=== PATIENT | female | born 1985 | race Caucasian/White ===

== ENCOUNTER 2023-03-23 00:16 | Inpatient (IN) ==
[2023-03-23] MEDS ORDERED: LIDOCAINE 1% LOCAL 20 ML VIAL INFIL PRN (01:13)
[2023-03-23] MEDS ORDERED: OXYTOCIN 30 UNITS/NSS 30 UNITS/500 ML BAG IV PRN ×2 (01:13→11:06)
[2023-03-23] MEDS ORDERED: PENICILLIN GK 6 MU in DEXTROSE 5% 250 ML IV STA (01:13)
--- NOTE | 2023-03-23 01:15 | History & Physical Report ---
Date of Service March 23, 2023 Assessment & Plan (1) Post-dates : (2) Group B streptococcal infection during : (3) Supervision of elderly primigravida: Plan Given already scheduled for today for induction and now quite early in the am, will plan on admission and see if she spontaneously labors. If not, would recommend pitocin or arom. Fetus reassuring and appears category one. History of Present Illness Primary Care Provider: NO PCP patient is a 37yowf with iup at 41 1/7 weeks. scheduled for postdates induction today but calling noting increased and more painful contractions. no lof/vb and Delivery Plans Obesity (BMI between 35-39 @ beginning of ) *Growth US @ 32 wks--> efw 77% *Weekly NSTs @ 36wks AMA *Weekly NST's @ 36 wks. Need for Rhogam due to RH Negative Mother -Rhogam given 12/22/22 - SP GBS Positive *Treat in Labor OB Labs: Blood Type A Negative 08/05/22 Antibody Screen NEGATIVE 12/22/22 Hemoglobin 10.5 g/dl (12.0-16.0) L 12/22/22 Hematocrit 30.9 % (37.0-47.0) L 12/22/22 Mean Corpuscular Volume 84.1 fL (80.0-100.0) 08/05/22 Platelet Count 273 K/uL (130-400) 08/05/22 Rubella IgG Antibody Immune (Immune) 08/05/22 Rapid Plasma Reagin Nonreactive (Nonreactive) 08/05/22 Hepatitis B Surface Antigen. NON-REACTIVE (NON-REACTIVE) 08/05/22 Hepatitis C Antibody (EIA) NON-REACTIVE (NON-REACTIVE) 08/05/22 HIV (1&2) Ag and Ab Confirmation NON-REACTIVE (NON-REACTIVE) 08/05/22 OB Optional Labs: Chlamydia trachomatis RNA Not Detected (NotDetected) 08/05/22 Neisseria gonorrhoeae RNA Not Detected (NotDetected) 08/05/22 Labs Reviewed: declines cfdna and horizon--smp gbs positive--akh Allergies Allergy/AdvReac Type Severity Reaction Status Date / Time No Known Allergies Allergy Verified 03/23/23 00:32 Home Medications Medication Instructions Recorded Confirmed Type prenat.vits,chrissy,lxa-bmhc-zudpj 1 tab PO DAILY 05/15/22 03/23/23 History ascorbic acid (vitamin C) 1 tab PO DAILY 07/27/22 03/23/23 History cholecalciferol (vitamin D3) 1 tab PO DAILY 07/27/22 03/23/23 History magnesium chloride 1 tab PO DAILY 07/27/22 03/23/23 History mecobalamin (vitamin B12) 1 tab PO DAILY 07/27/22 03/23/23 History omega-3 acid ethyl esters 1 tab PO DAILY 07/27/22 03/23/23 History pyridoxine (vitamin B6) 1 tab PO DAILY 07/27/22 03/23/23 History Patient History Medical History Migraines Threatened Obesity Surgical History [place] teeth extracted Family History Grandfather (Maternal) Myocardial infarction Other Dyslipidemia Hypertension Denies family history of Ovarian cancer Prostate cancer Breast cancer Colorectal cancer Social History Smoking Status: Never smoker Second Hand Exposure: No; Do You Dip or Chew Tobacco: No; Hx Alcohol Use: No Hx Substance Use: No Preferred Language: Kiswahili Communication Ability: Effective [employer] Security Required: No Beliefs That Will Affect Care: None marital status: marital status details: Bc (32) [phone] Current Living Situation: Spouse Current Living Situation Comment: house with current occupational status: employed 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 Date GA wks Lbr Lgth wt Sex Type del Anes Place Del Prov ? Comment 05/15/22 4 Aborted-Spontaneous [employer] History noncontributory Physical Exam Constitutional: WD/WN, vitals as above Gastrointestinal (Abdomen): obese, gravid, soft, nt Psychiatric: A+Ox3, euthymic affect Genitourinary: cx--3/80/-2 toco--q3-6min efm--130s with mod variability, difficult tracing, small accels. Results & Data Vital Signs (Past 12 Hours) Vital Signs Temp Pulse Resp BP O2 Del Method 03/23/23 00:39 36.8 C 18 Room Air 03/23/23 00:30 36.8 C 65 18 142/67 H Coding Level of Care Code None Diagnoses Post-dates O48.0 Group B streptococcal infection during O98.819; B95.1 Supervision of elderly primigravida O09.519
[2023-03-23] MEDS: LACTATED RINGER'S 1,000 ML IV PRN ×3 (02:01→18:04)
[2023-03-23 02:09] LABS: Hematocrit (blood only) 33.4 % (37.0-47.0); Hemoglobin 11.2 g/dl (12.0-16.0); Mean Corpuscular Hemoglobin 28.9 pg (25.0-34.0); Mean Corpuscular Hgb Conc 33.5 g/dL (32.0-36.0); Mean Corpuscular Volume 86.3 fL (80.0-100.0); Mean Platelet Volume 10.5 fL (9.4-12.4); Platelet Count 246 K/uL (130-400); RDW Coefficient of Variation 14.2 % (11.5-14.5); RDW Standard Deviation 44.5 fL (36.4-46.3); Red Blood Count 3.87 M/uL (4.20-5.40); White Blood Count 14.22 K/ul (4.8-10.8)
--- NOTE | 2023-03-23 04:24 | Labor Progress Brief Note ---
Date of Service March 23, 2023 Subjective notes contractions more painful and closer Assessment & Plan (1) Post-dates : (2) Group B streptococcal infection during : Plan Plan continued expectant management. fetus category one. Wants the most natural labor possible. did discuss the potential of arom at next check after next dose of pcn. She is agreeable. Admission and Anticipated Discharge Date Admission Date: March 23, 2023 Physical Exam Physical Exam: cx--4/90/-2 toco--irregular, 6-9min, efm--140s with mod variability, small accels , no decels Results & Data Vital Signs (Past 12 Hours) Vital Signs Temp Pulse Resp BP O2 Del Method 03/23/23 04:20 75 03/23/23 04:20 138/76 03/23/23 00:39 36.8 C 18 Room Air 03/23/23 00:30 36.8 C 65 18 142/67 H Coding Level of Care Code None Diagnoses Post-dates O48.0 Group B streptococcal infection during O98.819; B95.1
[2023-03-23] MEDS: PENICILLIN GK 3 MU in DEXTROSE 5% 100 ML IV PRN ×5 (05:45→22:20)
--- NOTE | 2023-03-23 07:35 | Labor Progress Brief Note ---
Date of Service March 23, 2023 Subjective contractions more painful, but does note irregular with spacing. notes bloody show. Assessment & Plan (1) Post-dates : (2) Group B streptococcal infection during : Plan Must have ruptured between last check and now. Making very slow change. Discussed the pros/cons of adding pitocin. Discussed may need to do so if continues to have minimal change and dysfunctional pattern. She expresses understanding. fetus category one. Admission and Anticipated Discharge Date Admission Date: March 23, 2023 Physical Exam Constitutional: WD/WN, vitals as above Psychiatric: A+Ox3, euthymic affect Genitourinary: cx--4/100/-2 cannot feel membranes toco--difficult tracing. irregular 3-6 with coupling and tripling efm--130s with mod variability, accels present, no decels Results & Data Vital Signs (Past 12 Hours) Vital Signs Temp Pulse Resp BP O2 Del Method 03/23/23 07:06 90 03/23/23 07:06 139/88 03/23/23 04:20 18 03/23/23 04:20 36.6 C 18 03/23/23 04:20 75 03/23/23 04:20 138/76 03/23/23 00:39 36.8 C 18 Room Air 03/23/23 00:30 36.8 C 65 18 142/67 H Coding Level of Care Code None Diagnoses Post-dates O48.0 Group B streptococcal infection during O98.819; B95.1
--- NOTE | 2023-03-23 09:08 | Labor Progress Brief Note ---
Date of Service March 23, 2023 Subjective pt breathing with ctx. Assessment & Plan (1) Post-dates : (2) Group B streptococcal infection during : (3) Need for rhogam due to Rh negative mother: (4) Supervision of elderly primigravida: Plan good cx change. on pcn for gbs pos. fhts categ 1. anticip . pt aware i am taking over care. Admission and Anticipated Discharge Date Admission Date: March 23, 2023 Physical Exam Constitutional: WD/WN, vitals as above Genitourinary: Manual OB Exam: + cervical dilation 6 cm, + cervical effacement 100% and + station 0 OB Exam Monitor Tracing: + external FHT monitor used, + external uterine monitor used (q2-4 per nurse, not traced well. ), + category I and + normal FHT variability Results & Data Vital Signs (Past 12 Hours) Vital Signs Temp Pulse Resp BP O2 Del Method 03/23/23 07:10 98.1 F 16 03/23/23 07:06 90 03/23/23 07:06 139/88 03/23/23 04:20 18 03/23/23 04:20 97.9 F 18 03/23/23 04:20 75 03/23/23 04:20 138/76 03/23/23 00:39 98.2 F 18 Room Air 03/23/23 00:30 98.2 F 65 18 142/67 H Coding Level of Care Code None Diagnoses Post-dates O48.0 Group B streptococcal infection during O98.819; B95.1 Need for rhogam due to Rh negative mother Z29.13 Supervision of elderly primigravida O09.519
--- NOTE | 2023-03-23 13:25 | Labor Progress Brief Note ---
Date of Service March 23, 2023 Subjective late entry due to attending multiple other deliveries, seen about 1hr ago Assessment & Plan (1) Post-dates : (2) Group B streptococcal infection during : (3) Need for rhogam due to Rh negative mother: (4) Supervision of elderly primigravida: Plan rec pitocin augmentation of labor. pt agrees. fhts categ1. watch bp. Admission and Anticipated Discharge Date Admission Date: March 23, 2023 Physical Exam Constitutional: WD/WN, vitals as above (newest bp elevated, will need to recheck) Genitourinary: Manual OB Exam: + cervical dilation 6 cm, + cervical effacement 90% and + station 0 OB Exam Monitor Tracing: + external FHT monitor used, + external uterine monitor used (q8min), + category I and + normal FHT variability Results & Data Vital Signs (Past 12 Hours) Vital Signs Temp Pulse Resp BP 03/23/23 13:05 93 H 03/23/23 13:05 160/76 H 03/23/23 12:52 64 03/23/23 12:52 161/71 H 03/23/23 12:37 71 03/23/23 12:37 158/83 H 03/23/23 12:20 71 03/23/23 12:20 145/72 H 03/23/23 12:06 75 03/23/23 12:06 144/67 H 03/23/23 11:51 76 03/23/23 11:51 169/74 H 03/23/23 11:00 98.1 F 03/23/23 10:50 71 03/23/23 10:50 138/73 03/23/23 09:15 71 03/23/23 09:15 139/68 03/23/23 09:10 98.8 F 03/23/23 09:10 75 03/23/23 09:10 168/90 H 03/23/23 07:10 98.1 F 16 03/23/23 07:06 90 03/23/23 07:06 139/88 03/23/23 04:20 18 03/23/23 04:20 97.9 F 18 03/23/23 04:20 75 03/23/23 04:20 138/76 Coding Level of Care Code None Diagnoses Post-dates O48.0 Group B streptococcal infection during O98.819; B95.1 Need for rhogam due to Rh negative mother Z29.13 Supervision of elderly primigravida O09.519
[2023-03-23] MEDS ORDERED: LABETALOL HCL IV 5 MG/ML 20ML IV STA (14:07)
--- NOTE | 2023-03-23 14:07 | Labor Progress Brief Note ---
Date of Service March 23, 2023 Subjective feeling pain with ctx. no cespedes or visual change. Assessment & Plan (1) Post-dates : (2) Group B streptococcal infection during : (3) Need for rhogam due to Rh negative mother: (4) Supervision of elderly primigravida: Plan good cx change. c/w pit. will need to trt elevated bp Admission and Anticipated Discharge Date Admission Date: March 23, 2023 Physical Exam Constitutional: WD/WN, vitals as above Genitourinary: Manual OB Exam: + cervical dilation 8 cm, + cervical effacement 100% and + station + 1 OB Exam Monitor Tracing: + external FHT monitor used, + external uterine monitor used (q3, on pit), + category I and + normal FHT variability Results & Data Vital Signs (Past 12 Hours) Vital Signs Temp Pulse Resp BP 03/23/23 13:55 69 03/23/23 13:55 172/77 H 03/23/23 13:51 75 03/23/23 13:51 167/87 H 03/23/23 13:42 71 03/23/23 13:42 169/88 H 03/23/23 13:36 70 03/23/23 13:36 163/89 H 03/23/23 13:30 20 03/23/23 13:30 98.1 F 20 03/23/23 13:23 69 03/23/23 13:23 187/87 H 03/23/23 13:05 93 H 03/23/23 13:05 160/76 H 03/23/23 12:52 64 03/23/23 12:52 161/71 H 03/23/23 12:37 71 03/23/23 12:37 158/83 H 03/23/23 12:20 71 03/23/23 12:20 145/72 H 03/23/23 12:06 75 03/23/23 12:06 144/67 H 03/23/23 11:51 76 03/23/23 11:51 169/74 H 03/23/23 11:00 98.1 F 03/23/23 10:50 71 03/23/23 10:50 138/73 03/23/23 09:15 71 03/23/23 09:15 139/68 03/23/23 09:10 98.8 F 03/23/23 09:10 75 03/23/23 09:10 168/90 H 03/23/23 07:10 98.1 F 16 03/23/23 07:06 90 03/23/23 07:06 139/88 03/23/23 04:20 18 03/23/23 04:20 97.9 F 18 03/23/23 04:20 75 03/23/23 04:20 138/76 Coding Level of Care Code None Diagnoses Post-dates O48.0 Group B streptococcal infection during O98.819; B95.1 Need for rhogam due to Rh negative mother Z29.13 Supervision of elderly primigravida O09.519
[2023-03-23] MEDS ORDERED: SODIUM CHLORIDE 0.9% PF INJ 10 ML VIAL ONE (17:53)
[2023-03-23] MEDS ORDERED: LIDOCAINE 2%/EPINEPHRINE 1:200,000 20 ML PF ONE (17:53)
[2023-03-23] MEDS ORDERED: BUPIVACAINE 0.25% PF 30 ML VIAL ONE (17:53)
[2023-03-23] MEDS ORDERED: fentaNYL citrate PF 100 MCG/2 ML VIAL ONE (17:53)
[2023-03-23] MEDS ORDERED: fentANYL 2 MCG/ML BUPIVacaine 0.125%-NSS 100ML BAG ONE (17:53)
[2023-03-23] MEDS ORDERED: ePHEDrine sulfate 50 MG/ML AMP ONE (17:53)
--- NOTE | 2023-03-23 17:54 | Anesthesiology Consultation ---
Date of Service March 23, 2023 Assessment & Plan (1) Encounter for pre-operative examination: Chart Review Chart Review: Acceptable Risk for Labor Epidural History Height/Weight Height: 5 ft 2 in Weight: 115.212 kg Allergies Allergy/AdvReac Type Severity Reaction Status Date / Time No Known Allergies Allergy Verified 03/23/23 00:32 Medications Home Medications Medication Instructions Recorded Confirmed Last Taken prenat.vits,chrissy,uwd-vghs-jajtf 1 tab PO DAILY 05/15/22 03/23/23 03/22/23 ascorbic acid (vitamin C) 1 tab PO DAILY 07/27/22 03/23/23 03/22/23 cholecalciferol (vitamin D3) 1 tab PO DAILY 07/27/22 03/23/23 03/22/23 magnesium chloride 1 tab PO DAILY 07/27/22 03/23/23 03/22/23 mecobalamin (vitamin B12) 1 tab PO DAILY 07/27/22 03/23/23 03/22/23 omega-3 acid ethyl esters 1 tab PO DAILY 07/27/22 03/23/23 03/22/23 pyridoxine (vitamin B6) 1 tab PO DAILY 07/27/22 03/23/23 03/22/23 Active Medications Generic Name Dose Route Start Last Admin Trade Name Freq PRN Reason Stop Dose Admin Lactated Ringer's 1,000 mls @ 125 mls/hr 03/23/23 01:13 03/23/23 16:00 Lr IV 03/25/23 01:12 125 mls/hr .Q8H PRN Infusion L&D Protocol Protocol Penicillin G Potassium 3 mu/ 106 mls @ 100 mls/hr 03/23/23 04:13 03/23/23 13:38 Dextrose IV 04/02/23 04:12 106 mls/hr Q4H PRN Administration GBS(+) Until Delivery Oxytocin 30 units in 500 mls @ 7 mls/hr 03/23/23 11:06 03/23/23 16:00 Pitocin 30 Units/Nss IV 03/25/23 11:05 0.42 units/hr .Q24H PRN 7 mls/hr Labor Induction/Augmentation Titration Protocol 0.42 UNITS/HR Past Medical History Medical History Migraines Threatened Obesity Past Family History Family History Grandfather (Maternal) Myocardial infarction Other Dyslipidemia Hypertension Denies family history of Ovarian cancer Prostate cancer Breast cancer Colorectal cancer Past Surgical History Surgical History [place] teeth extracted Social History Smoking Status: Never smoker Do You Dip or Chew Tobacco: No Hx Alcohol Use: No Hx Substance Use: No Physical Exam Vital Signs Last Vital Signs Temp 36.7 C 03/23/23 15:00 Pulse 71 03/23/23 17:50 Resp 20 03/23/23 13:30 BP 144/76 H 03/23/23 17:04 Pulse Ox 99 03/23/23 17:50 O2 Del Method Room Air 03/23/23 00:39 Testing Laboratory Results 03/23/23 01:56 Blood Type A Negative 03/23/23 01:56 Antibody Screen NEGATIVE 03/23/23 01:56
[2023-03-23] MEDS ORDERED: NALOXONE HCL 0.4 MG/1 ML VIAL/CARP IV PRN (18:21)
[2023-03-23] MEDS ORDERED: SODIUM CHLORIDE 0.9% PF INJ 10 ML VIAL EPI PRN (18:21)
[2023-03-23] MEDS ORDERED: ONDANSETRON INJ 2 MG/ML 2 ML VIAL IV PRN (18:21)
[2023-03-23] MEDS ORDERED: SODIUM CHLORIDE 0.9% PF INJ 10 ML VIAL EPI STA (18:21)
[2023-03-23] MEDS ORDERED: BUPIVACAINE 0.25% PF 30 ML VIAL EPI PRN (18:21)
[2023-03-23] MEDS ORDERED: LIDOCAINE 2% MPF LOCAL 5 ML VIAL EPI PRN (18:21)
[2023-03-23] MEDS ORDERED: fentANYL 2 MCG/ML BUPIVacaine 0.125%-NSS 100ML BAG EPI PRN (18:21)
[2023-03-23] MEDS ORDERED: fentaNYL citrate PF 100 MCG/2 ML VIAL EPI STA (18:21)
[2023-03-23] MEDS ORDERED: NALOXONE HCL 1 MG in SODIUM CHLORIDE 0.9% 1,000 ML IV PRN (18:21)
[2023-03-23] MEDS ORDERED: ePHEDrine sulfate 50 MG/ML AMP IV PRN (18:21)
[2023-03-23] MEDS ORDERED: ROPIVACAINE 0.5% PF 5 MG/ML 20 ML VIAL EPI PRN (18:21)
[2023-03-23] MEDS ORDERED: BUPIVACAINE 0.25% PF 30 ML VIAL EPI STA (18:21)
[2023-03-23] MEDS ORDERED: LIDOCAINE 2%/EPINEPHRINE 1:200,000 20 ML PF EPI STA (18:21)
[2023-03-23] MEDS ORDERED: fentaNYL citrate PF 100 MCG/2 ML VIAL EPI PRN (18:21)
--- NOTE | 2023-03-23 22:26 | Labor Progress Brief Note ---
Date of Service March 23, 2023 Subjective pt feeling comfortable Assessment & Plan (1) Post-dates : (2) Group B streptococcal infection during : (3) Need for rhogam due to Rh negative mother: (4) Supervision of elderly primigravida: Plan good cx change compared to my prior exams but given ctx pattern needs more power/pitocin. fhts categ 1. enc change of positions. Admission and Anticipated Discharge Date Admission Date: March 23, 2023 Physical Exam Constitutional: WD/WN, vitals as above Genitourinary: Manual OB Exam: + cervical dilation (rim), + cervical effacement 100% and + station + 1 OB Exam Monitor Tracing: + external FHT monitor used, + external uterine monitor used (q2-4, pit at 15), + category I and + normal FHT variability Results & Data Vital Signs (Past 12 Hours) Vital Signs Temp Pulse Resp BP Pulse Ox 03/23/23 22:20 100 03/23/23 22:20 68 03/23/23 22:16 65 03/23/23 22:16 111/54 L 03/23/23 22:15 99 03/23/23 22:15 64 03/23/23 22:10 100 03/23/23 22:10 83 03/23/23 22:05 100 03/23/23 22:05 88 03/23/23 22:00 100 03/23/23 22:00 87 03/23/23 21:55 99 03/23/23 21:55 73 03/23/23 21:50 99 03/23/23 21:50 68 03/23/23 21:46 71 03/23/23 21:46 131/63 03/23/23 21:45 100 03/23/23 21:45 75 03/23/23 21:40 100 03/23/23 21:40 68 03/23/23 21:35 100 03/23/23 21:35 67 03/23/23 21:31 66 03/23/23 21:31 125/62 03/23/23 21:30 18 03/23/23 21:30 18 03/23/23 21:30 100 03/23/23 21:30 64 03/23/23 21:25 100 03/23/23 21:25 66 03/23/23 21:20 100 03/23/23 21:20 76 03/23/23 21:15 100 03/23/23 21:15 72 03/23/23 21:15 124/64 03/23/23 21:10 100 03/23/23 21:10 69 03/23/23 21:05 100 03/23/23 21:05 72 03/23/23 21:00 18 03/23/23 21:00 98.6 F 18 03/23/23 21:00 100 03/23/23 21:00 73 03/23/23 21:00 75 03/23/23 21:00 127/66 03/23/23 20:55 100 03/23/23 20:55 77 03/23/23 20:50 100 03/23/23 20:50 78 03/23/23 20:46 82 03/23/23 20:46 134/81 03/23/23 20:45 100 03/23/23 20:45 89 03/23/23 20:40 100 03/23/23 20:40 73 03/23/23 20:35 100 03/23/23 20:35 76 03/23/23 20:32 80 03/23/23 20:32 142/67 H 03/23/23 20:30 18 03/23/23 20:30 18 03/23/23 20:30 100 03/23/23 20:30 77 03/23/23 20:25 99 03/23/23 20:25 69 03/23/23 20:20 100 03/23/23 20:20 74 03/23/23 20:15 99 03/23/23 20:15 68 03/23/23 20:15 127/65 03/23/23 20:10 99 03/23/23 20:10 69 03/23/23 20:05 100 03/23/23 20:05 65 03/23/23 20:01 81 03/23/23 20:01 128/69 03/23/23 20:00 18 03/23/23 20:00 98.4 F 18 03/23/23 20:00 100 03/23/23 20:00 74 03/23/23 19:55 100 03/23/23 19:55 79 03/23/23 19:50 99 03/23/23 19:50 65 03/23/23 19:45 99 03/23/23 19:45 65 03/23/23 19:45 128/62 03/23/23 19:40 100 03/23/23 19:40 65 03/23/23 19:35 100 03/23/23 19:35 68 03/23/23 19:31 72 03/23/23 19:31 132/67 03/23/23 19:30 100 03/23/23 19:30 72 03/23/23 19:25 100 03/23/23 19:25 78 03/23/23 19:20 98 03/23/23 19:20 66 03/23/23 19:16 72 03/23/23 19:16 126/58 L 03/23/23 19:15 99 03/23/23 19:15 71 03/23/23 19:10 100 03/23/23 19:10 79 03/23/23 19:05 100 03/23/23 19:05 89 03/23/23 19:01 67 03/23/23 19:01 118/56 L 03/23/23 19:00 16 03/23/23 19:00 16 03/23/23 19:00 99 03/23/23 19:00 67 03/23/23 18:55 100 03/23/23 18:55 66 03/23/23 18:50 99 03/23/23 18:50 68 03/23/23 18:45 100 03/23/23 18:45 70 03/23/23 18:44 66 03/23/23 18:44 120/60 03/23/23 18:42 71 03/23/23 18:42 121/59 L 03/23/23 18:40 100 03/23/23 18:40 71 03/23/23 18:40 67 03/23/23 18:40 120/57 L 03/23/23 18:38 68 03/23/23 18:38 120/57 L 03/23/23 18:36 66 03/23/23 18:36 122/58 L 03/23/23 18:35 99 03/23/23 18:35 69 03/23/23 18:34 65 03/23/23 18:34 122/58 L 03/23/23 18:32 68 03/23/23 18:32 123/57 L 03/23/23 18:30 16 03/23/23 18:30 16 03/23/23 18:30 100 03/23/23 18:30 71 03/23/23 18:30 122/62 03/23/23 18:28 80 03/23/23 18:28 121/66 03/23/23 18:26 83 03/23/23 18:26 123/62 03/23/23 18:25 100 03/23/23 18:25 85 03/23/23 18:24 83 03/23/23 18:24 128/63 03/23/23 18:22 16 03/23/23 18:22 16 03/23/23 18:22 86 03/23/23 18:22 136/67 03/23/23 18:20 99 03/23/23 18:20 79 03/23/23 18:20 134/69 03/23/23 18:18 16 03/23/23 18:18 16 03/23/23 18:18 82 03/23/23 18:18 139/65 03/23/23 18:16 78 03/23/23 18:16 148/70 H 03/23/23 18:15 99 03/23/23 18:15 83 03/23/23 18:14 85 03/23/23 18:14 174/91 H 03/23/23 18:10 94 03/23/23 18:10 74 03/23/23 18:05 100 03/23/23 18:05 84 03/23/23 18:00 100 03/23/23 18:00 72 03/23/23 17:55 99 03/23/23 17:55 69 03/23/23 17:50 99 03/23/23 17:50 71 03/23/23 17:06 98.8 F 03/23/23 17:04 65 03/23/23 17:04 144/76 H 03/23/23 15:37 66 03/23/23 15:37 150/74 H 03/23/23 15:07 74 03/23/23 15:07 157/77 H 03/23/23 15:00 98.1 F 03/23/23 14:59 69 03/23/23 14:59 154/77 H 03/23/23 14:51 69 03/23/23 14:51 146/73 H 03/23/23 14:39 63 03/23/23 14:39 149/80 H 03/23/23 14:36 64 03/23/23 14:36 143/78 H 03/23/23 14:30 67 03/23/23 14:30 166/74 H 03/23/23 14:16 69 172/77 H 03/23/23 13:55 69 03/23/23 13:55 172/77 H 03/23/23 13:51 75 03/23/23 13:51 167/87 H 03/23/23 13:42 71 03/23/23 13:42 169/88 H 03/23/23 13:36 70 03/23/23 13:36 163/89 H 03/23/23 13:30 20 03/23/23 13:30 98.1 F 20 03/23/23 13:23 69 03/23/23 13:23 187/87 H 03/23/23 13:05 93 H 03/23/23 13:05 160/76 H 03/23/23 12:52 64 03/23/23 12:52 161/71 H 03/23/23 12:37 71 03/23/23 12:37 158/83 H 03/23/23 12:20 71 03/23/23 12:20 145/72 H 03/23/23 12:06 75 03/23/23 12:06 144/67 H 03/23/23 11:51 76 03/23/23 11:51 169/74 H 03/23/23 11:00 98.1 F 03/23/23 10:50 71 03/23/23 10:50 138/73 Coding Level of Care Code None Diagnoses Post-dates O48.0 Group B streptococcal infection during O98.819; B95.1 Need for rhogam due to Rh negative mother Z29.13 Supervision of elderly primigravida O09.519
[2023-03-24] MEDS: LACTATED RINGER'S 1,000 ML IV PRN (00:16)
--- NOTE | 2023-03-24 02:10 | Labor Progress Brief Note ---
Date of Service March 24, 2023 Subjective pt pushing. Assessment & Plan (1) Post-dates : (2) Group B streptococcal infection during : (3) Need for rhogam due to Rh negative mother: (4) Supervision of elderly primigravida: Plan cont 2nd stage. fhts categ 2. c/w pit Admission and Anticipated Discharge Date Admission Date: March 23, 2023 Physical Exam Constitutional: WD/WN, vitals as above Genitourinary: Manual OB Exam: + cervical dilation 10 cm, + cervical effacement 100% and + station + 2 OB Exam Monitor Tracing: + external FHT monitor used, + external uterine monitor used (q2-3), + category II, + normal FHT variability and + variable decelerations Results & Data Vital Signs (Past 12 Hours) Vital Signs Temp Pulse Resp BP Pulse Ox 03/24/23 02:05 77 132/62 03/24/23 01:50 101 H 135/64 03/24/23 01:30 18 03/24/23 01:30 18 03/24/23 01:20 86 100 03/24/23 01:15 88 100 03/24/23 01:10 77 100 03/24/23 01:05 74 100 03/24/23 01:00 98.6 F 72 18 100 03/24/23 00:55 78 100 03/24/23 00:50 79 100 03/24/23 00:45 75 100 03/24/23 00:40 74 100 03/24/23 00:35 73 100 03/24/23 00:32 89 126/80 03/24/23 00:30 76 18 100 03/24/23 00:25 88 100 03/24/23 00:20 87 100 03/24/23 00:16 77 123/77 03/24/23 00:15 84 100 03/24/23 00:10 92 H 100 03/24/23 00:05 80 100 03/24/23 00:02 70 137/71 03/24/23 00:00 77 18 100 03/23/23 23:55 100 03/23/23 23:55 73 03/23/23 23:50 99 03/23/23 23:50 74 03/23/23 23:45 100 03/23/23 23:45 83 03/23/23 23:40 100 03/23/23 23:40 87 03/23/23 23:35 100 03/23/23 23:35 97 H 03/23/23 23:30 99 03/23/23 23:30 83 03/23/23 23:25 98 03/23/23 23:25 78 03/23/23 23:20 99 03/23/23 23:20 68 03/23/23 23:15 99 03/23/23 23:15 83 03/23/23 23:10 98 03/23/23 23:10 67 03/23/23 23:05 100 03/23/23 23:05 85 03/23/23 23:00 18 03/23/23 23:00 99.0 F 18 03/23/23 23:00 98 03/23/23 23:00 83 03/23/23 22:55 98 03/23/23 22:55 65 03/23/23 22:50 99 03/23/23 22:50 65 03/23/23 22:45 98 03/23/23 22:45 67 03/23/23 22:40 99 03/23/23 22:40 67 03/23/23 22:35 100 03/23/23 22:35 65 03/23/23 22:30 18 03/23/23 22:30 18 03/23/23 22:30 18 03/23/23 22:30 18 03/23/23 22:30 98 03/23/23 22:30 63 03/23/23 22:30 61 03/23/23 22:30 115/56 L 03/23/23 22:25 98 03/23/23 22:25 68 03/23/23 22:20 100 03/23/23 22:20 68 03/23/23 22:16 65 03/23/23 22:16 111/54 L 03/23/23 22:15 99 03/23/23 22:15 64 03/23/23 22:10 100 03/23/23 22:10 83 03/23/23 22:05 100 03/23/23 22:05 88 03/23/23 22:00 100 03/23/23 22:00 87 03/23/23 21:55 99 03/23/23 21:55 73 03/23/23 21:50 99 03/23/23 21:50 68 01/09/24 21:46 71 03/23/23 21:46 131/63 03/23/23 21:45 100 03/23/23 21:45 75 03/23/23 21:40 100 03/23/23 21:40 68 03/23/23 21:35 100 03/23/23 21:35 67 03/23/23 21:31 66 03/23/23 21:31 125/62 03/23/23 21:30 18 03/23/23 21:30 18 03/23/23 21:30 100 03/23/23 21:30 64 03/23/23 21:25 100 03/23/23 21:25 66 03/23/23 21:20 100 03/23/23 21:20 76 03/23/23 21:15 100 03/23/23 21:15 72 03/23/23 21:15 124/64 03/23/23 21:10 100 03/23/23 21:10 69 03/23/23 21:05 100 03/23/23 21:05 72 03/23/23 21:00 18 03/23/23 21:00 98.6 F 18 03/23/23 21:00 100 03/23/23 21:00 73 03/23/23 21:00 75 03/23/23 21:00 127/66 03/23/23 20:55 100 03/23/23 20:55 77 03/23/23 20:50 100 03/23/23 20:50 78 03/23/23 20:46 82 03/23/23 20:46 134/81 03/23/23 20:45 100 03/23/23 20:45 89 03/23/23 20:40 100 03/23/23 20:40 73 03/23/23 20:35 100 03/23/23 20:35 76 03/23/23 20:32 80 03/23/23 20:32 142/67 H 03/23/23 20:30 18 03/23/23 20:30 18 03/23/23 20:30 100 03/23/23 20:30 77 03/23/23 20:25 99 03/23/23 20:25 69 03/23/23 20:20 100 03/23/23 20:20 74 03/23/23 20:15 99 03/23/23 20:15 68 03/23/23 20:15 127/65 03/23/23 20:10 99 03/23/23 20:10 69 03/23/23 20:05 100 03/23/23 20:05 65 03/23/23 20:01 81 03/23/23 20:01 128/69 03/23/23 20:00 18 03/23/23 20:00 98.4 F 18 03/23/23 20:00 100 03/23/23 20:00 74 03/23/23 19:55 100 03/23/23 19:55 79 03/23/23 19:50 99 03/23/23 19:50 65 03/23/23 19:45 99 03/23/23 19:45 65 03/23/23 19:45 128/62 03/23/23 19:40 100 03/23/23 19:40 65 03/23/23 19:35 100 03/23/23 19:35 68 03/23/23 19:31 72 03/23/23 19:31 132/67 03/23/23 19:30 100 03/23/23 19:30 72 03/23/23 19:25 100 03/23/23 19:25 78 03/23/23 19:20 98 03/23/23 19:20 66 03/23/23 19:16 72 03/23/23 19:16 126/58 L 03/23/23 19:15 99 03/23/23 19:15 71 03/23/23 19:10 100 03/23/23 19:10 79 03/23/23 19:05 100 03/23/23 19:05 89 03/23/23 19:01 67 03/23/23 19:01 118/56 L 03/23/23 19:00 16 03/23/23 19:00 16 03/23/23 19:00 99 03/23/23 19:00 67 03/23/23 18:55 100 03/23/23 18:55 66 03/23/23 18:50 99 03/23/23 18:50 68 03/23/23 18:45 100 03/23/23 18:45 70 03/23/23 18:44 66 03/23/23 18:44 120/60 01/09/24 18:42 71 03/23/23 18:42 121/59 L 03/23/23 18:40 100 03/23/23 18:40 71 03/23/23 18:40 67 03/23/23 18:40 120/57 L 03/23/23 18:38 68 03/23/23 18:38 120/57 L 03/23/23 18:36 66 03/23/23 18:36 122/58 L 03/23/23 18:35 99 03/23/23 18:35 69 03/23/23 18:34 65 03/23/23 18:34 122/58 L 03/23/23 18:32 68 03/23/23 18:32 123/57 L 03/23/23 18:30 16 03/23/23 18:30 16 03/23/23 18:30 100 03/23/23 18:30 71 03/23/23 18:30 122/62 03/23/23 18:28 80 03/23/23 18:28 121/66 03/23/23 18:26 83 03/23/23 18:26 123/62 03/23/23 18:25 100 03/23/23 18:25 85 03/23/23 18:24 83 03/23/23 18:24 128/63 03/23/23 18:22 16 03/23/23 18:22 16 03/23/23 18:22 86 03/23/23 18:22 136/67 03/23/23 18:20 99 03/23/23 18:20 79 03/23/23 18:20 134/69 03/23/23 18:18 16 03/23/23 18:18 16 03/23/23 18:18 82 03/23/23 18:18 139/65 03/23/23 18:16 78 03/23/23 18:16 148/70 H 03/23/23 18:15 99 03/23/23 18:15 83 03/23/23 18:14 85 03/23/23 18:14 174/91 H 03/23/23 18:10 94 03/23/23 18:10 74 03/23/23 18:05 100 03/23/23 18:05 84 03/23/23 18:00 100 03/23/23 18:00 72 03/23/23 17:55 99 03/23/23 17:55 69 03/23/23 17:50 99 03/23/23 17:50 71 03/23/23 17:06 98.8 F 03/23/23 17:04 65 03/23/23 17:04 144/76 H 03/23/23 15:37 66 03/23/23 15:37 150/74 H 03/23/23 15:07 74 03/23/23 15:07 157/77 H 03/23/23 15:00 98.1 F 03/23/23 14:59 69 03/23/23 14:59 154/77 H 03/23/23 14:51 69 03/23/23 14:51 146/73 H 03/23/23 14:39 63 03/23/23 14:39 149/80 H 03/23/23 14:36 64 03/23/23 14:36 143/78 H 03/23/23 14:30 67 03/23/23 14:30 166/74 H 03/23/23 14:16 69 172/77 H Coding Level of Care Code None Diagnoses Post-dates O48.0 Group B streptococcal infection during O98.819; B95.1 Need for rhogam due to Rh negative mother Z29.13 Supervision of elderly primigravida O09.519
--- NOTE | 2023-03-24 03:07 | Anesthesia Procedure Note ---
Date of Service March 24, 2023 Anesthesia Post Epidural Note Vital Signs Vital Signs: Temp Pulse Resp BP Pulse Ox O2 Del Method 37.0 C 114 H 18 127/67 100 Room Air 03/24/23 01:00 03/24/23 02:50 03/24/23 02:00 03/24/23 02:50 03/24/23 01:20 03/23/23 00:39 Pain Intensity Abdomen: Pain Intensity: 6 Notes Mental Status: alert / awake / arousable and participated in evaluation Nausea / Vomiting: adequately controlled Pain: adequately controlled Airway Patency, RR, SpO2: stable & adequate BP & HR: stable & adequate Hydration State: stable & adequate Neuraxial Anesthesia: was administered and sensory block is resolving Anesthetic Complications: no major complications apparent Epidural: Removed without complications and With tip intact
--- NOTE | 2023-03-24 03:14 | Delivery Summary ---
Vaginal Delivery Summary Date of Service March 24, 2023 Vaginal Delivery Summary and 2nd Degree LAC The patient dilated to complete and pushed to deliver a viable female Apgars 7 and 9 via over 2nd degree perineal laceration. Mouth and nose bulb suctioned at perineum. Shoulders and body delivered with ease. Terminal meconium noted. was vigorous and crying at . Cord clamped at 30 seconds of life and infant to maternal abdomen where the cord was then doubly clamped and cut. Placenta delivered spontaneously and intact, three-vessel cord. Hemostasis achieved with dilute pitocin and uterine massage and drainage of the bladder for approximately 200 cc under sterile conditions. Laceration repaired in layers with 3-0 vicryl, tissue easily was tearing. Cervix and sulci intact. EBL 600 cc, at least 200cc while pushing likely from vaginal laceration . Mother and baby stable in recovery. [facility] [place] Charge Delivery Type Details: and 2nd Degree LAC
[2023-03-24] MEDS ORDERED: bisacodyL 10 MG SUPP PR PRN (03:50)
[2023-03-24] MEDS ORDERED: BENZOCAINE 20% SPRY 85 APPLN/85 GM CAN EXT PRN (03:50)
[2023-03-24] MEDS ORDERED: OXYTOCIN 30 UNITS/NSS 30 UNITS/500 ML BAG IV PRN (03:50)
[2023-03-24] MEDS ORDERED: DIPHTHERIA/TETANUS/PERTUSSIS Vaccine (Tdap, Age 7+yrs) 0.5mL SYR/VL IM ONE (03:50)
[2023-03-24] MEDS ORDERED: ACETAMINOPHEN 325 MG TAB PO PRN (03:50)
[2023-03-24] MEDS ORDERED: oxyCODONE/ACETAMINOPHEN 5mg/325mg TAB PO PRN (03:50)
[2023-03-24] MEDS ORDERED: HYDROCORTISONE ACETATE 25 MG SUPP PR PRN (03:50)
[2023-03-24] MEDS ORDERED: OXYTOCIN 20 UNITS/LR 1,002 ML IV SCH (03:50)
[2023-03-24] MEDS: IBUPROFEN 600 MG TAB PO PRN ×4 (04:26→20:37)
[2023-03-24] MEDS ORDERED: CALCIUM CARBONATE 500 MG CHEWABLE TAB PO PRN (04:29)
[2023-03-24] MEDS: DOCUSATE SODIUM 100 MG CAP PO SCH ×2 (10:27→20:38)
[2023-03-24] MEDS: PRENATAL VITAMIN 1 TAB PO SCH (10:28)
[2023-03-25] MEDS: IBUPROFEN 600 MG TAB PO PRN ×2 (02:11→08:37)
[2023-03-25 06:21] LABS: Hematocrit (blood only) 22.2 % (37.0-47.0); Hemoglobin 7.4 g/dl (12.0-16.0)
--- NOTE | 2023-03-25 07:38 | Obstetrical Progress Note ---
Date of Service <Sheree Larios MD - Last Filed: 03/25/23 07:38> March 25, 2023 Assessment & Plan <Sheree Larios MD - Last Filed: 03/25/23 07:38> (1) Encounter for care after hospital delivery: Patient with the above mentioned history and findings was evaluated at bedside and found awake, alert, oriented in all spheres, afebrile, and in no acute distress. Vital signs showed no fever and blood pressures remained stable. Her blood type is A negative. Baby's blood type AB positive. Pending Rhogam. Most recent hemoglobin is 7.4 g/dL. Patient reporting lightheadedness. Transfusion was discussed given low value and present symptoms, but patient preferred use iron tablets as management. She is GBS positive treated intrapartum and rubella immune. Overall, patient is doing well clinically and meeting the desired milestones. Since she is clinically and hemodynamically stable, will discharge today. she was counseled to make an appointment with her OB in 6 weeks for her routine pp evaluation. Discharge instructions discussed. All questions answered. <Nazanin Garcia MD - Last Filed: 03/25/23 08:05> (1) Encounter for care after hospital delivery: Subjective <Sheree Larios MD - Last Filed: 03/25/23 07:38> Libby is a 37y/o female who is now PPD # 1 following at 41 2/7 weeks. Reports feeling well overall this morning. Refers mild abdominal cramping & 3/10 pain well managed on analgesics. Voiding spontaneously. Has passed flatus but no bowel movements yet. Tolerating meals overnight and able to ambulate some . Some persistent lochia with some improvement this morning. . Constitutional: no fever, no chills or no sweats Denies shortness of breath or difficulty breathing Cardiovascular: no chest pain or no palpitations Breast: no breast pain Genitourinary (female): no dysuria Neurologic: no headache(s) Denies changes in vision Physical Exam <Sheree Larios MD - Last Filed: 03/25/23 07:38> General: Alert. Oriented to person, time, and place. Afebrile. No acute distress. Eyes: pupils equal and reactive to light bilaterally, extraocular movements intact. Cardiac: Regular rate and rhythm, no murmurs/rubs/gallops. Respiratory: Clear to auscultation bilaterally a/p, no wheezes/rales/rhonchi. No increased work of breathing. Symmetrical chest rise. No respiratory distress. Abdomen: Soft, nontender, nondistended. Bowel sounds present. Uterus: Uterine fundus firm, mildly tender, and palpable below umbilicus. Lower Extremities: No deep calf pain. Kaushik's negative bilaterally. Psych: Euthymic affect. Mood and affect congruence. Regular speech rate and content. Results & Data <Sheree Larios MD - Last Filed: 03/25/23 07:38> Vital Signs (Past 12 Hours) Vital Signs Temp Pulse Resp BP Pulse Ox O2 Del Method 03/25/23 00:40 36.7 C 75 20 132/89 97 Room Air 03/24/23 20:45 36.6 C 84 18 108/76 98 Room Air Supervising Physician <Nazanin Garcia MD - Last Filed: 03/25/23 08:05> Co-Signing Physician Notes Resident Physician Supervision Note: I interviewed and examined the patient. Discussed with Dr. Larios and agree with findings and plan as documented in the note. Any exceptions or clarifications are listed here: 37 yo PP1 s/p , doing well. Occ lightheadedness with ambulation but not consistent. VSS, exam benign and wnl. H/H 7.4 today. Discussed iron vs blood transfusion, pt overall feels well and thinks fatigue may be adding to the lightheadedness. Would prefer to stick with iron pills for now. Pt does desire dc home, ok to do so. Precautions reviewed Documented By: Nazanin Garcia MD
[2023-03-25] MEDS: DOCUSATE SODIUM 100 MG CAP PO SCH (08:33)
[2023-03-25] MEDS: PRENATAL VITAMIN 1 TAB PO SCH (08:33)
== END 2023-03-25 13:58 | disposition home or self-care (01) | DRG 807 ==
LOC: OPB 00:16 → 4S1 00:19 → 4E2 03-24 05:30